=== PATIENT | female | born 1990 | race Caucasian/White ===

== ENCOUNTER 2018-10-15 20:47 | Emergency (ER) | payer MEDICAID ==
[~2018-10-15] VITALS: Ht 154.9 cm; Wt 57.6 kg
[2018-10-15 21:02] VITALS: BP_SYST 132
[2018-10-15 21:37] VITALS: BP_SYST 132
== END 2018-10-15 21:37 | disposition home or self-care (01) ==
LOC: SED 20:47
DX: L60.0 Ingrowing nail (principal); R03.0 Elevated blood-pressure reading, without diagnosis of hypertension
CPT/HCPCS: 99283

== ENCOUNTER 2018-10-18 21:14 | Emergency (ER) | payer MEDICAID ==
[~2018-10-18] VITALS: Ht 154.9 cm; Wt 54.4 kg
[2018-10-18 22:00] VITALS: BP_SYST 121
--- NOTE | 2018-10-18 22:06 | NUR ---
Patient triaged and placed in waiting room. VSS and patient appears in no acute distress at this time. Accompanied by , awaiting available bed, and MD notified of need for MSE.
--- NOTE | 2018-10-19 | NUR ---
Pt called in 3x. Patient left without being seen. No further treatment provided. ER aware
== END 2018-10-19 | disposition left against medical advice (07) ==
LOC: SED 21:14
DX: M79.675 Pain in left toe(s) (principal); Z53.21 Procedure and treatment not carried out due to patient leaving prior to being seen by health care provider

== ENCOUNTER 2018-10-26 22:20 | Emergency (ER) | payer MEDICAID ==
[~2018-10-26] VITALS: Ht 154.9 cm; Wt 57.6 kg
[2018-10-26 22:32] VITALS: BP_SYST 129
[2018-10-27] MEDS ORDERED: cefTRIAXone 1 GM IVPB PREMIX 50 ML IV SCH (01:00)
[2018-10-27] MEDS ORDERED: cefTRIAXone 1 GM VIAL IM ONE (01:15)
[2018-10-27 01:45] VITALS: BP_SYST 129
== END 2018-10-27 01:45 | disposition home or self-care (01) ==
LOC: SED 22:20 → UNDOADMIN 10-27 00:11 → STU 10-27 00:11
DX: L03.032 Cellulitis of left toe (principal)
CPT/HCPCS: 96372; 99283; J0696 ×2; G0378

== ENCOUNTER 2022-12-08 21:46 | Emergency (ER) | payer BC, OTHER ==
[~2022-12-08] VITALS: Ht 154.9 cm; Wt 68.0 kg
[2022-12-08 21:58] VITALS: BP_SYST 130; PULSE 82; RESP 16; TEMP 98.4; O2SAT 99
--- NOTE | 2022-12-08 22:33 | NUR ---
Patient to ER bed 8 to gown for evaluation. Side rails up. Report given to IRINA RANDALL.
--- NOTE | 2022-12-08 22:37 | NUR ---
Pt bib partner. c/o LUQ abdominal cramping. pt states pain started about 3 hrs ago. Pt states pain 6/10. Pt states to have taken a home test and came back positive. Pt states she might be around 5 weeks . Pt denies bleeding. Pt denies trauma to area. Pt states diarrhea and nausea onset of 2 days. Pt afebrile. Pt states no pain medication. Pt VSS. Pt AAOX4. Skin dry and intact. PERRLA. Pt speaking full complete sentences. Pt in bed with side rails up. Partner at bedside
--- NOTE | 2022-12-08 22:59 | NUR ---
ER at bedside examining patient.
[2022-12-08 23:11] LABS: BILIRUBIN,URINE NEGATIVE (NEGATIVE); BLOOD, URINE NEGATIVE (NEGATIVE); CLARITY/URINE CLEAR (CLEAR); COLOR,URINE YELLOW (YELLOW); GLUCOSE,URINE NEGATIVE (NEGATIVE); KETONES,URINE NEGATIVE (NEGATIVE); LEUKOCYTE ESTERASE ,URINE NEGATIVE (NEGATIVE); NITRITE, URINE NEGATIVE (NEGATIVE); PH,URINE 6.5 (5.0-8.0); PROTEIN URINE NEGATIVE (NEGATIVE); UROBILINOGEN,URINE 0.2 (0.2-1.0)
--- NOTE | 2022-12-08 23:25 | NUR ---
Patient transported to radiology via WHEELCHAIR, accompanied by TECH.
[2022-12-08 23:40] LABS: BASOPHILS # (AUTO) 0.1 K/uL (0.0-0.2); BASOPHILS % (AUTO) 0.6 % (0.0-2.0); EOSINOPHILS # (AUTO) 0.6 K/uL (0.0-0.4); EOSINOPHILS % (AUTO) 4.8 % (0.0-4.0); HEMATOCRIT 42.9 % (36-48); HEMOGLOBIN 14.3 g/dL (12.0-16.0); LYMPHOCYTES # (AUTO) 5.3 K/uL (1.0-5.5); LYMPHOCYTES % (AUTO) 44.9 % (20.5-51.5); MEAN CORPUSCULAR HEMOGLOBIN 29 pg (27-31); MEAN CORPUSCULAR HGB CONC 33 % (32-36); MEAN CORPUSCULAR VOLUME 88 fL (79.0-98.0); MONOCYTES # (AUTO) 0.6 K/uL (0.0-1.0); MONOCYTES % (AUTO) 5.3 % (1.7-9.3); NEUTROPHILS # (AUTO) 5.2 K/uL (1.8-7.7); NEUTROPHILS % (AUTO) 44.4 % (40.0-70.0); PLATELET COUNT (AUTO) 484 K/uL (130-430); RED BLOOD CELL COUNT(AUTO) 4.86 MIL/uL (4.2-6.2); RED CELL DISTRIBUTION WIDTH 12.9 % (9.0-15.0); WHITE BLOOD COUNT (AUTO) 11.7 K/uL (4.8-10.8)
[2022-12-09] MEDS ORDERED: ACET325T53 PO (00:45)
--- NOTE | 2022-12-09 00:58 | NUR ---
Patient given written and verbal discharge instructions and verbalizes understanding. ER MD discussed with patient the results and treatment provided. Patient in stable condition. ID arm band removed. Rx of TYLENOL REGULAR given. Patient educated on pain management and to follow up with PMD. Opportunity for questions provided and answered. Medication side effect fact sheet provided.
[2022-12-09 00:59] VITALS: BP_SYST 124; PULSE 74; RESP 15; TEMP 99.4; O2SAT 99
== END 2022-12-09 00:59 | disposition home or self-care (01) ==
LOC: SED 21:46
DX: O26.891 Other specified pregnancy related conditions, first trimester (principal); Z3A.01 Less than 8 weeks gestation of pregnancy; Z79.899 Other long term (current) drug therapy
CPT/HCPCS: 36415; 76801; 76817; 81003; 81025; 84702; 85025; 86886; 86900; 86901; 99284

== ENCOUNTER 2022-12-10 23:26 | Emergency (ER) | payer OTHER ==
[~2022-12-10] VITALS: Ht 154.9 cm; Wt 68.0 kg
[~2022-12-10 23:26] MED LIST: ACET325T53 PO
[2022-12-10 23:42] VITALS: BP_SYST 113; PULSE 78; RESP 20; TEMP 98.4; O2SAT 98
[2022-12-11] MEDS ORDERED: PNV1TABL62 PO (00:46)
[2022-12-11 00:50] VITALS: BP_SYST 113; PULSE 78; RESP 20; TEMP 98.4; O2SAT 98
== END 2022-12-11 00:50 | disposition home or self-care (01) ==
LOC: SED 23:26
DX: Z32.00 Encounter for pregnancy test, result unknown (principal); Z79.899 Other long term (current) drug therapy
CPT/HCPCS: 36415; 84702; 99283

== ENCOUNTER 2023-01-02 21:56 | Emergency (ER) | payer OTHER ==
[~2023-01-02] VITALS: Ht 154.9 cm; Wt 68.0 kg
[~2023-01-02 21:56] MED LIST changes: +PNV1TABL62 PO
[2023-01-02 22:06] VITALS: BP_SYST 119; PULSE 66; RESP 17; TEMP 97.9; O2SAT 98
[2023-01-02 22:31] LABS: BILIRUBIN,URINE NEGATIVE (NEGATIVE); BLOOD, URINE NEGATIVE (NEGATIVE); CLARITY/URINE CLEAR (CLEAR); COLOR,URINE YELLOW (YELLOW); GLUCOSE,URINE NEGATIVE (NEGATIVE); KETONES,URINE NEGATIVE (NEGATIVE); LEUKOCYTE ESTERASE ,URINE NEGATIVE (NEGATIVE); NITRITE, URINE NEGATIVE (NEGATIVE); PH,URINE 6.5 (5.0-8.0); PROTEIN URINE NEGATIVE (NEGATIVE); UROBILINOGEN,URINE 0.2 (0.2-1.0)
[2023-01-02 22:32] LABS: HCG,QUAL RESULT POSITIVE (NEGATIVE)
[2023-01-02 23:26] LABS: BASOPHILS # (AUTO) 0.1 K/uL (0.0-0.2); BASOPHILS % (AUTO) 0.6 % (0.0-2.0); EOSINOPHILS # (AUTO) 0.4 K/uL (0.0-0.4); EOSINOPHILS % (AUTO) 3.7 % (0.0-4.0); HEMOGLOBIN 12.7 g/dL (12.0-16.0); LYMPHOCYTES # (AUTO) 4.6 K/uL (1.0-5.5); LYMPHOCYTES % (AUTO) 39.7 % (20.5-51.5); MEAN CORPUSCULAR HEMOGLOBIN 29 pg (27-31); MEAN CORPUSCULAR HGB CONC 33 % (32-36); MEAN CORPUSCULAR VOLUME 88 fL (79.0-98.0); MONOCYTES # (AUTO) 0.7 K/uL (0.0-1.0); MONOCYTES % (AUTO) 6.3 % (1.7-9.3); NEUTROPHILS # (AUTO) 5.8 K/uL (1.8-7.7); NEUTROPHILS % (AUTO) 49.7 % (40.0-70.0); PLATELET COUNT (AUTO) 401 K/uL (130-430); RED BLOOD CELL COUNT(AUTO) 4.33 MIL/uL (4.2-6.2); RED CELL DISTRIBUTION WIDTH 12.6 % (9.0-15.0); WHITE BLOOD COUNT (AUTO) 11.6 K/uL (4.8-10.8)
[2023-01-02 23:43] LABS: CALCIUM 9.2 mg/dL (8.4-11.0); CREATININE 0.53 mg/dL (0.55-1.30); POTASSIUM 3.9 mmol/L (3.5-5.1)
[2023-01-02 23:47] LABS: ALBUMIN 3.8 g/dL (3.4-4.8); TOTAL BILIRUBIN 0.3 mg/dL (0.0-1.0); TOTAL PROTEIN, SERUM 7.7 g/dL (6.4-8.3)
[2023-01-02 23:58] VITALS: BP_SYST 116; PULSE 69; RESP 16; TEMP 98; O2SAT 98
[2023-01-03] MEDS ORDERED: PREN-119 PO (00:26)
== END 2023-01-03 00:40 | disposition home or self-care (01) ==
LOC: SED 21:59
DX: O26.891 Other specified pregnancy related conditions, first trimester (principal); Z3A.01 Less than 8 weeks gestation of pregnancy; Z79.899 Other long term (current) drug therapy
CPT/HCPCS: 36415; 76801; 76817; 80053; 81003; 84702; 84703; 85025; 86900; 86901; 99284

== ENCOUNTER 2024-01-09 10:40 | Emergency (ER) | payer OTHER ==
[~2024-01-09] VITALS: Ht 154.9 cm; Wt 71.2 kg
[~2024-01-09 10:40] MED LIST changes: +PREN-119 PO
[2024-01-09 10:46] VITALS: BP_SYST 127; PULSE 85; RESP 18; TEMP 98.3; O2SAT 97
[2024-01-09] MEDS ORDERED: TRAM50TA2 PO (11:43)
[2024-01-09 12:00] VITALS: BP_SYST 127; PULSE 85; RESP 18; TEMP 98.3; O2SAT 97
== END 2024-01-09 11:59 | disposition home or self-care (01) ==
LOC: SED 10:40
DX: L60.0 Ingrowing nail (principal); Z79.899 Other long term (current) drug therapy; Z79.2 Long term (current) use of antibiotics
CPT/HCPCS: 99284